=== PATIENT | female | born 1960 | race Caucasian/White ===

== ENCOUNTER → 2016-12-04 | Outpatient (CLI) | payer BC | LOC: MC.RAD 14:20 | DX: Z12.31 Encounter for screening mammogram for malignant neoplasm of breast (principal) ==

== ENCOUNTER → 2018-01-23 | Outpatient (CLI) | payer BC | LOC: MC.RAD 13:57 | DX: Z12.31 Encounter for screening mammogram for malignant neoplasm of breast (principal) ==

== ENCOUNTER → 2020-11-14 | Outpatient (CLI) | payer BC | LOC: MC.RAD 13:24 | DX: Z12.31 Encounter for screening mammogram for malignant neoplasm of breast (principal); N63.10 Unspecified lump in the right breast, unspecified quadrant ==

== ENCOUNTER → 2020-11-20 | Outpatient (CLI) | payer BC | LOC: MC.RAD 08:21 | DX: N63.10 Unspecified lump in the right breast, unspecified quadrant (principal) ==

== ENCOUNTER → 2020-11-22 | Outpatient (CLI) | payer BC | LOC: MC.RAD 06:57 | DX: N60.01 Solitary cyst of right breast (principal) ==

== ENCOUNTER → 2021-11-30 | Outpatient (CLI) | payer BC | LOC: COL.VAS 10-03 14:00 | DX: I10 Essential (primary) hypertension (principal); I35.1 Nonrheumatic aortic (valve) insufficiency ==

== ENCOUNTER → 2022-03-25 | Outpatient (CLI) | payer BC | LOC: COL.RAD 10:10 | DX: E21.3 Hyperparathyroidism, unspecified (principal) | CPT/HCPCS: A9500 ==

== ENCOUNTER → 2022-04-16 | Outpatient (CLI) | payer BC | LOC: MC.RAD 08:08 | DX: Z12.31 Encounter for screening mammogram for malignant neoplasm of breast (principal) ==

== ENCOUNTER → 2023-11-26 | Outpatient (CLI) | payer BC | LOC: MC.RAD 07:35 | DX: Z12.31 Encounter for screening mammogram for malignant neoplasm of breast (principal) ==